=== PATIENT | female | born 1975 | race Two or more races ===

== ENCOUNTER 2020-05-01 09:02 | Outpatient (CLI) | payer OTHER ==
[~2020-05-01 09:02] MED LIST: CLARINEX; LEVOTHYROXINE25 MCG; PROVENTIL; TRAMADOL HCL50 MG
== END 2020-05-01 09:04 | disposition home or self-care (01) ==
LOC: NUCLEAR 09:02
PROVIDERS: ATTEND Internal Medicine Hematology & Oncology
DX: C81.18 Nodular sclerosis Hodgkin lymphoma, lymph nodes of multiple sites (principal); C79.51 Secondary malignant neoplasm of bone
CPT/HCPCS: 78816; A9552

== ENCOUNTER 2024-06-01 14:21 | Inpatient (IN) | payer OTHER ==
[~2024-06-01] VITALS: Ht 160 cm; Wt 99.8 kg
[2024-06-01] MEDS ORDERED: EVEROLIMUS PO (14:33)
[2024-06-01] MEDS ORDERED: ACETAMINOPHEN 500 MG GEL..CAP PO ONE (16:45)
[2024-06-01 17:00] LABS: HEMATOCRIT 38.4 % (36.0-45.00); HEMOGLOBIN 13.2 g/dL (12.0-15.00); MEAN CELL VOLUME 90.3 fL (80.00-100.00); MEAN CORPUSCULAR HGB CONC 34.3 g/dl (32.0-36.0); PLATELET COUNT 217 K/uL (150-450); RED BLOOD COUNT 4.25 M/uL (4.00-6.00); RED CELL DISTRIBUTION WIDTH 12.1 % (11.5-14.5)
[2024-06-01 17:51] LABS: ALBUMIN 3.9 gm/dL (3.4-5.0); BILIRUBIN TOTAL 0.38 mg/dL (0.3-1.2); CALCIUM 9.7 mg/dL (8.5-10.1); CREATININE SERUM 0.84 mg/dL (0.55-1.02); GFR 71.77; GLOBULINA 3.9 G/DL (2.4-3.5); POTASSIUM 3.99 mEq/L (3.5-5.1); TOTAL PROTEIN 7.8 gm/dL (6.4-8.2)
[2024-06-01 17:55] LABS: C-REACTIVE PROTEIN 2.24 MG/DL (0.00-0.29)
[2024-06-01] MEDS ORDERED: CLINDAMYCIN PHOSPHATE 150 MG/ML (600mg) IV ONE (19:00)
[2024-06-01] MEDS ORDERED: MORPHINE SULFATE 2 MG/ML SYRINGE IV SCH (19:57)
[2024-06-01] MEDS ORDERED: ACETAMINOPHEN 500 MG GEL..CAP PO PRN (20:00)
[2024-06-01] MEDS ORDERED: ONDANSETRON HCL 4 MG in 0.9 % SODIUM CHLORIDE 50 ML IV PRN (20:00)
[2024-06-01] MEDS ORDERED: 0.9 % SODIUM CHLORIDE 1,000 ML IV SCH (20:00)
[2024-06-01] MEDS ORDERED: hydrALAZINE HCL 20 MG VIAL IV PRN (20:00)
[2024-06-01] MEDS ORDERED: FAMOTIDINE/PF 20 MG in 0.9 % SODIUM CHLORIDE 8 ML IV PUSH SCH (21:00)
[2024-06-02 00:03] VITALS: BP 130/72
[2024-06-02] MEDS ORDERED: CLINDAMYCIN PHOSPHATE 600 MG in 0.9 % SODIUM CHLORIDE 50 ML IV SCH (01:00)
[2024-06-02 02:27] VITALS: BP 126/73; O2SAT 98
[2024-06-02] MEDS ORDERED: LEVOTHYROXINE SODIUM 25 MCG TABLET PO SCH (06:00)
[2024-06-02] MEDS ORDERED: EVEROLIMUS 10 MG IV SCH (09:00)
[2024-06-02 09:10] LABS: PH,URINE 5.5 (5.0-8.0); URINE APPEARANCE Clear; URINE BILIRRUBIN Negative (NEGATIVE); URINE BLOOD Negative; URINE COLOR Yellow; URINE GLUCOSE Negative (NEGATIVE); URINE KETONE Negative (NEGATIVE); URINE LEUKOCYTE Negative; URINE NITRATE Negative; URINE PROTEIN Negative (NEGATIVE); URINE UROBILINOGEN 0.2 E.U./dl
[2024-06-02 09:14] LABS: HEMATOCRIT 37.9 % (36.0-45.00); HEMOGLOBIN 13.2 g/dL (12.0-15.00); MEAN CELL VOLUME 92.4 fL (80.00-100.00); MEAN CORPUSCULAR HEMOGLOBIN 32.2 pg (27.00-32.0); MEAN CORPUSCULAR HGB CONC 34.8 g/dl (32.0-36.0); PLATELET COUNT 184 K/uL (150-450)
[2024-06-02 09:14] LABS: URINE BACTERIA 125.9 uL (0.0-1933); URINE EPITHELIAL CELLS 7.5 uL (0.0-38.8); URINE WBC 7.2 uL (0.0-23.2)
[2024-06-02 09:35] LABS: ERYTHROCYTE SEDIMENTATION RATE 34 mm/hr
[2024-06-02 09:39] LABS: INR 0.99; PARTIAL THROMBOPLASTIN TIME 30.6 SECONDS (22.0-34.0); PROTHROMBIN TIME 10.8 SECONDS (9.0-11.5)
[2024-06-02 11:05] VITALS: BP 137/76; O2SAT 97
[2024-06-02 17:25] VITALS: BP 125/70
[2024-06-02 18:41] LABS: ALBUMIN 3.5 gm/dL (3.4-5.0); ALKALINE PHOSPHATASE 76 U/L (50-136); ALT/SGPT 26 U/L (12-78); ANION GAP 10 (10.0-20.0); AST/SGOT 26 U/L (15-37); BILIRUBIN TOTAL 0.28 mg/dL (0.3-1.2); BILIRUBIN,CONJUGATED < 0.10 mg/dL (0.0-0.2); BILIRUBIN,UNCONJUGATED 0.18 mg/dL (0.0-0.6); BLOOD UREA NITROGEN 10 mg/dL (7-18); BUN CREA RATIO 10 (7.0-25.0); CALCIUM 8.5 mg/dL (8.5-10.1); CARBON DIOXIDE 25 mEq/L (21-32); CHLORIDE 112 mmol/L (98-107); CHOLESTEROL 191 mg/dL (0-200); CREATININE SERUM 1.02 mg/dL (0.55-1.02); GFR 57.13; GLOBULINA 3.3 G/DL (2.4-3.5); GLUCOSE FASTING 92 mg/dL (65-100); HDL 63 mg/dl (40-60); LDL 96 mg/dl (0-130); OSMOLALITY SERUM 284 MOSM/KG (275-295); POTASSIUM 4.14 mEq/L (3.5-5.1); SODIUM 143 mmol/L (136-145); TOTAL PROTEIN 6.8 gm/dL (6.4-8.2); TRIGLYCERIDES 161 mg/dL (0-150); VLDL 32 (0-39)
[2024-06-02 18:42] LABS: C-REACTIVE PROTEIN 4.06 MG/DL (0.00-0.29)
[2024-06-03 01:36] VITALS: BP 105/70; O2SAT 97
[2024-06-03 08:35] VITALS: BP 133/82
[2024-06-03 17:24] VITALS: BP 175/87
[2024-06-03] MEDS ORDERED: EVEROLIMUS 10 MG PO SCH (21:00)
[2024-06-03 23:48] VITALS: BP 116/80; O2SAT 98
[2024-06-04 05:18] LABS: HEMATOCRIT 34.2 % (36.0-45.00); HEMOGLOBIN 11.8 g/dL (12.0-15.00); MEAN CELL VOLUME 92.2 fL (80.00-100.00); MEAN CORPUSCULAR HEMOGLOBIN 31.9 pg (27.00-32.0); MEAN CORPUSCULAR HGB CONC 34.6 g/dl (32.0-36.0); PLATELET COUNT 202 K/uL (150-450); RED BLOOD COUNT 3.71 M/uL (4.00-6.00); RED CELL DISTRIBUTION WIDTH 11.9 % (11.5-14.5)
[2024-06-04 05:42] LABS: ALBUMIN 3.2 gm/dL (3.4-5.0); BILIRUBIN TOTAL 0.33 mg/dL (0.3-1.2); CALCIUM 8.6 mg/dL (8.5-10.1); CREATININE SERUM 0.59 mg/dL (0.55-1.02); GFR 107.46; GLOBULINA 2.9 G/DL (2.4-3.5); POTASSIUM 4.32 mEq/L (3.5-5.1); TOTAL PROTEIN 6.1 gm/dL (6.4-8.2)
[2024-06-04 08:06] VITALS: BP 140/83
[2024-06-04 18:31] VITALS: BP 143/82; O2SAT 98
[2024-06-05 01:15] VITALS: BP 100/57; O2SAT 99
[2024-06-05 09:22] VITALS: BP 130/76; O2SAT 99
[2024-06-05 18:50] VITALS: BP 175/89
[2024-06-06 01:03] VITALS: BP 104/54
[2024-06-06 09:21] VITALS: BP 133/85; O2SAT 99
== END 2024-06-06 11:37 | disposition home or self-care (01) | DRG 571 ==
LOC: ER 14:23 → MEDJ 20:09
PROVIDERS: Emergency Medicine; General Practice; ADMIT Internal Medicine; ATTEND Internal Medicine
PROC: 0JB60ZZ Excision of Chest Subcutaneous Tissue and Fascia, Open Approach (ICD-10-PCS; principal; 2024-06-05)
DX: N61.1 Abscess of the breast and nipple (principal); C81.90 Hodgkin lymphoma, unspecified, unspecified site; L03.818 Cellulitis of other sites; D84.9 Immunodeficiency, unspecified; L98.499 Non-pressure chronic ulcer of skin of other sites with unspecified severity; E03.9 Hypothyroidism, unspecified; Z88.0 Allergy status to penicillin; Z88.2 Allergy status to sulfonamides